=== PATIENT | male | born 1990 ===

== ENCOUNTER 2023-07-29 20:19 | Emergency (ER) | payer BC, OTHER ==
[~2023-07-29] VITALS: Ht 172.7 cm; Wt 73.4 kg
[2023-07-30 04:10] VITALS: BP 124/68; TEMP 98.2; O2SAT 98
[2023-07-30 04:17] LABS: HEMATOCRIT 36.9 % (42.0-52.0); HEMOGLOBIN 12.3 g/dl (13.5-17.5); MEAN CORPUSCULAR HGB CONC 33.3 g/dl (32.0-36.5); PLATELET COUNT, AUTOMATED 183 10^3/uL (150-450); WHITE BLOOD COUNT 4.5 10^3/uL (4.0-10.0)
[2023-07-30] MEDS ORDERED: CLINDAMYCIN 150MG CAPSULE PO ONE (04:30)
[2023-07-30] MEDS ORDERED: PERCOCET 5MG/325MG TAB PO ONE (04:30)
[2023-07-30 04:35] LABS: BLOOD UREA NITROGEN 15 MG/DL (9-23); CALCIUM LEVEL 8.3 MG/DL (8.5-10.1); CARBON DIOXIDE LEVEL 26 MMOL/L (20-31); CHLORIDE LEVEL 109 MMOL/L (98-107); CREATININE FOR GFR 0.71 MG/DL (0.70-1.30); GLOMERULAR FILTRATION RATE > 60.0 (>60); GLUCOSE, FASTING 96 MG/DL (60-100); POTASSIUM SERUM 4.5 MMOL/L (3.5-5.1); SODIUM LEVEL 142 MMOL/L (136-145)
[2023-07-30] MEDS ORDERED: ISOVUE-370 76% 100ML VIAL As Ordered ONE (04:40)
[2023-07-30] MEDS ORDERED: CLIN150C17 PO (05:24)
[2023-07-30] MEDS ORDERED: PERC5TAB12 PO (05:24)
== END 2023-07-30 05:39 | disposition home or self-care (01) ==
LOC: M ED 20:19
DX: K02.9 Dental caries, unspecified (principal); R59.0 Localized enlarged lymph nodes; K08.56 Poor aesthetic of existing restoration of tooth; F17.290 Nicotine dependence, other tobacco product, uncomplicated
CPT/HCPCS: 70491; 80048; 85027; 86140; 99284; Q9967